=== PATIENT | female | born 1955 | race Asian ===

== ENCOUNTER 2025-02-25 18:22 | Emergency (ER) | payer SELFPAY ==
--- NOTE | ~2025-02-25 | CT_ITS ---
EXAMINATION: CTA chest PE protocol DATE: 02/25/2025 20:01 CDT INDICATION: Shortness of breath with recent immobility TECHNIQUE: Computed tomographic angiography (CTA) of the chest was performed with 100 mL Omnipaque-35 0 intravenous contrast. The dose-length product was 427.05 mGy-cm. Maximum intensity projection 3D-re constructions of the aorta and other arteries were constructed by the technologist on a separate work station. COMPARISON: None. FINDINGS/OBSERVATIONS: PULMONARY ARTERIES: No filling defect is identified within the main or proximal pulmonary artery. The main pulmonary artery is not enlarged. THORACIC AORTA: No aneurysmal dilatation or dissection is present. The great vessels are intact LUNGS: Trace bibasilar atelectasis. The remainder of the lungs are clear. MEDIASTINUM: No morphologically suspicious or pathologically enlarged lymph nodes are identified with in the mediastinum or bilateral axilla. BONES OF THE CHEST: Sternal wires and mediastinal clips are identified, the wires are midline and intact. Evidence of prior vertebral augmentation with anterior extravasation of cement (at the level of T4). Vertebral augmentation at the level of L1 is also noted. No significant degenerative disease. No lytic or blastic lesions. No acute compression fractures. HEART: The heart is of normal size, without pericardial effusion. Within the upper abdomen: Multiple foci of fluid attenuation are identified within the liver, statist ically representing cysts. 2 and 3 mm calculi within the upper pole of the right kidney. The contour of the bilateral kidneys ar e nodular. The bilateral kidneys demonstrate significant cortical atrophy. IMPRESSION: No pulmonary embolus. No thoracic aortic dissection. Trace bibasilar atelectasis. Reviewed, dictated and finalized at location A.
--- NOTE | ~2025-02-25 | XR_ITS ---
CHEST RADIOGRAPH, PA AND LATERAL CLINICAL HISTORY: SOB . COMPARISON: None available TECHNIQUE: PA and lateral views of the chest. FINDINGS Sternal wires and mediastinal clips are identified, the wires are midline and intact. The heart is enlarged. Interstitial thickening is detected, likely chronic. The lungs are otherwise clear. Vertebral augmentation at the levels of T4 and L1. Remaining visualized osseous structures and soft tissues are otherwise unremarkable. IMPRESSION: No focal infiltrate or effusion. Reviewed, dictated and finalized at location A.
--- NOTE | 2025-02-25 18:32 | ECG_ITS ---
Test Date: 2025-02-25 18:35:29 Measurements Intervals [place] Rate: 50 P: 29 CT: 162 QRS: 54 QRSD: 83 T: 54 QT: 468 QTc: 429 Interpretive Statements SINUS BRADYCARDIA MINIMAL Q WAVES- INFERIOR LEADS ST ELEVATION IN ANTEROLAT/INF RIAN- PROBABLY EARLY REPOLARIZATION BASELINE ARTIFACT- I, II, III, AVR, AVL, AVF, V1 BORDERLINE ECG No previous ECG available for comparison Electronically Signed On 02-26-2025 06:02:59 CDT by Bogdan Stringer D.O.
[2025-02-25 18:34] VITALS: BP 85/47; PULSE 42; RESP 24; O2SAT 100
[2025-02-25 18:59] LABS: Basophils Percent Auto 0.3 % (0.2-1.2); Eosinophils Percent Auto 0.3 % (0-4.4); Hematocrit 43.6 % (37.0-47.0); Hemoglobin 14.6 g/dL (12.0-15.0); Immature Granulocyte Absolute 0.05 K/mm3 (0.00-0.031); Immature Granulocyte Percent A 0.6 % (0-0.5); Lymphocytes Absolute Auto 0.84 K/mm3 (0.9-3.2); Lymphocytes Percent Auto 10.7 % (18.3-44.2); Mean Corpuscular HGB Conc 33.5 g/dl (32-36); Mean Corpuscular Hemoglobin 31.8 pg (26-34); Mean Platelet Volume 10.2 fl (7.4-10.4); Monocytes Absolute Auto 0.5 K/mm3 (0.1-0.6); Monocytes Percent Auto 6.9 % (2.6-8.5); Neutrophils Absolute Auto 6.4 K/mm3 (1.3-6.7); Neutrophils Percent Auto 81.2 % (45.5-73.1); Platelet Count Result 180 k/mm3 (150-375); Red Blood Count 4.59 M/mm3 (4.2-5.4); Red Cell Distribution Width 13.2 % (11.5-14.5); White Blood Count 7.8 K/mm3 (4.5-10.0)
[2025-02-25 19:08] LABS: Alanine Aminotransferase 14 U/L (6-35); Alkaline Phosphatase 94 U/L (38-126); Anion Gap 10 mmol/L (4-12); Aspartate Amino Transferase 21 U/L (14-36); Blood Urea Nitrogen 25 mg/dL (7-17); Calcium 8.2 mg/dL (8.4-10.2); Carbon Dioxide 24 mmol/L (22-30); Chloride 101 mmol/L (98-107); Estimated Glomerular Filt Rate 49; Glucose 279 mg/dL (65-110); Lipase 163 U/L (23-300); Potassium 4.1 mmol/L (3.4-5.0); Sodium 135 mmol/L (137-145)
[2025-02-25 19:14] LABS: Prothrombin Time 13.4 Seconds (11.1-14.7)
[2025-02-25 19:15] LABS: Partial Thromboplastin Time 31.9 Seconds (22.3-36.8)
[2025-02-25 19:20] LABS: Troponin I < 0.012 ng/mL (0.000-0.034)
--- NOTE | 2025-02-25 19:24 | ED.SOB ---
HPI - SOB/Dyspnea General Chief Complaint: Shortness of Breath/Dyspnea Stated Complaint: dyspnea, low BP Time Seen by Provider: 02/25/25 19:01 History of Present Illness HPI Narrative: 69-year-old female primarily Lebanese speaking presenting to the emergency department accompanied by her 2 family members. She is [place] the [place] and started developing dyspnea today approximately 3:00 p.m.. She states that she was having trouble getting air in but denies any pleuritic chest pain. She describes chest pressure sensation. She has remote history of congenital heart disease with surgery in [place] many years ago, currently being treated for COPD, dementia, diabetes, gout. Patient is a poor historian at baseline and language barrier exist requiring translation services. Patient denies any chest pain, nausea, vomiting, abdominal pain, back pain. Family notes that she had deranged blood pressures throughout the day as well with elevations in the 180 systolic range and in triage here 85. Currently she is 122/74 without any interventions. Has a heart rate in the 40s to 50s, unclear if this is new or baseline. Related Data Home Medications ?Medication ?Instructions ?Recorded ?Confirmed ?Last Taken ?Type baclofen 10 mg tablet 10 mg PO TID 02/25/25 02/25/25 02/25/25 History citicoline sodium PO brain cell metabolism 02/25/25 02/25/25 History clopidogrel .ROUTE 02/25/25 02/25/25 History dapagliflozin propaned 10 1 tablet PO DAILY 02/25/25 02/25/25 02/25/25 History mg-metformin ER 500 mg tablet, ext rel 24hr entacapone 200 mg tablet 200 mg PO TID 02/25/25 02/25/25 02/25/25 History febuxostat 40 mg tablet (Uloric) 40 mg PO DAILY 02/25/25 02/25/25 02/25/25 History insulin asp prt-insulin aspart 02/25/25 02/25/25 History levodopa 250 mg tablet mg PO TID parkinson 02/25/25 02/25/25 History levothyroxine .ROUTE 02/25/25 02/25/25 History losartan 50 mg tablet (Cozaar) 25 mg PO DAILY 02/25/25 02/25/25 02/25/25 History ropinirole 0.5 mg tablet 0.5 mg PO TID parkinson 02/25/25 02/25/25 02/25/25 History selegiline HCl 5 mg tablet 5 mg PO BID parkinsons 02/25/25 02/25/25 02/25/25 History Allergies Allergy/AdvReac Type Severity Reaction Status Date / Time cephalexin Allergy Other Verified 02/25/25 19:54 ciprofloxacin Allergy Anaphylaxis Verified 02/25/25 19:54 Penicillins Allergy Other Verified 02/25/25 19:54 procaine Allergy Other Verified 02/25/25 19:54 streptomycin Allergy Anaphylaxis Verified 02/25/25 19:54 Sulfa (Sulfonamide Allergy Other Verified 02/25/25 19:54 Antibiotics) Review of Systems Review of Systems: As reviewed above in HPI Exam Narrative: GENERAL: [Well-appearing, well-nourished, and in no acute distress.] HEAD: [Normocephalic, atraumatic.] EYES: [PERRLA and EOMI.] ENT: Nares clear, no rhinorrhea or epistaxis. Mucous membranes moist. NECK: Supple. CHEST: Dyspneic, tachypneic, clear to auscultation, no decreased air entry or wheezing. HEART: [Regular rate and rhythm]. No murmur heard. [Normal peripheral pulses.] ABDOMEN: [Soft, nondistended], [nontender], [No rigidity or guarding] EXTREMITIES: Normal range of motion. [No edema.] SKIN: Old sternotomy scar present, no rash NEURO: [No focal deficits]. Alert and oriented [x3.] PSYCH: [Normal mood and affect.] Course Vital Signs Vital signs: Vital Signs Pulse Rate 42 L 02/25/25 18:34 Respiratory Rate 24 H 02/25/25 18:34 Blood Pressure 85/47 L 02/25/25 18:34 Pulse Oximetry 100 02/25/25 18:34 Pulse Rate 69 02/25/25 23:14 Respiratory Rate 15 02/25/25 23:14 Blood Pressure 148/72 H 02/25/25 23:14 Pulse Oximetry 100 02/25/25 23:14 MDM - SOB/Dyspnea MDM Narrative Medical decision making narrative: 69-year-old female, Lebanese speaking requiring doctor naturopathic. Patient has a history of COPD, diabetes, dementia, congenital heart defect that was repaired many years ago in [place]. Patient is accompanied by her family members were providing additional information time without her blood pressure and heart rate have been deranged throughout the day. Unclear if she has baseline bradycardia but they noted that her heart rate was jumping between hypotensive and hypertensive. Current set of vitals 121/92, heart rate 51, 100% on room air, tachypnea at 24. Afebrile. Triage vitals showed some hypotension and more bradycardia but this resolved upon arrival to the room without intervention. Bedside echocardiogram was conducted by myself and I appreciate a good ejection fraction, sinus bradycardic rate, no pericardial effusions, collapsible IVC with respiratory variation. No right ventricular strain evident. Atrial enlargement seen. She has clear breath sounds throughout, is tachypneic but not wheezing. Differential diagnosis includes thromboembolic event such as pulmonary embolism from the long travel as she has not had any recent surgeries or provoking factors. ACS, symptomatic bradycardia, pulmonary edema, diastolic dysfunction, mild COPD exacerbation, dehydration. Broad workup was ordered including CBC, CMP, troponin, EKG, chest x-ray. CT angiography of the chest was ordered. Her medications were reconciled in the chart. Patient has been placed on clinical consultant and for the last 4 hours while in the emergency department has remained hemodynamically stable with a heart rate in the 60s and a blood pressure in the 160 systolic range without any symptoms. This is reassuring and her workup was largely unremarkable without any concerning findings aside from some mild dehydration for which she was given fluids. Her workup shows no leukocytosis or anemia. Normal platelet count. Negative troponin x2. Mildly elevated creatinine, mildly elevated glucose without ketosis or acidosis. Normal electrolytes. Normal LFTs. Normal TSH. Negative lipase. Urinalysis with a high specific gravity and glucose without any ketones or any infection. Consistent with dehydration. Chest x-ray shows no findings. CT angiography shows no pulmonary embolism or dissection. Trace bibasilar atelectasis. Patient's EKG shows sinus bradycardia with no signs of ST segment changes, ectopy or concerning features such as QTC interval prolongation. I discussed with the patient and the family members at bedside the plan going forward. Given she is hemodynamically stable, given fluid rehydration and has no findings on her workup to point towards a specific etiology I did recommend making some medication changes to her home regimen and gave her primary care provider she can follow-up with. The family states that she will be in [facility] the [facility] 2 months before going back home to [place]. We will adjust her medications including taking half dose of torsemide instead of 10 mg now taking 5 mg p.r.n. as needed for significant leg swelling. We also adjusted and discontinued her metoprolol as she was bradycardic. She is still taking losartan for blood pressure control and her other medications will remain the same. Patient was made aware of these changes and was comfortable with them. She is safe for discharge home at this time and was given primary care provider referral information. Family was given strict return precautions which they verbalized understanding and were comfortable taking the patient home at this time. Medical Records Attestation: I reviewed the patient's medical records. Lab Data Attestation: I reviewed the patient's lab results. 02/25/25 18:51 02/25/25 18:51 Labs: Lab Results 02/25/25 02/25/25 02/25/25 Range/Units 18:51 20:16 21:45 WBC 7.8 (4.5-10.0) K/mm3 RBC 4.59 (4.2-5.4) M/mm3 Hgb 14.6 (12.0-15.0) g/dL Hct 43.6 (37.0-47.0) % MCV 95.0 (80-100) fl MCH 31.8 (26-34) pg MCHC 33.5 (32-36) g/dl RDW 13.2 (11.5-14.5) % Plt Count 180 (150-375) k/mm3 MPV 10.2 (7.4-10.4) fl Immature Gran % (Auto) 0.6 H (0-0.5) % Neut % (Auto) 81.2 H (45.5-73.1) % Lymph % (Auto) 10.7 L (18.3-44.2) % Woodson % (Auto) 6.9 (2.6-8.5) % Eos % (Auto) 0.3 (0-4.4) % Baso % (Auto) 0.3 (0.2-1.2) % Lymph # (Auto) 0.84 L (0.9-3.2) K/mm3 Woodson # (Auto) 0.5 (0.1-0.6) K/mm3 Eos # (Auto) 0.0 (0-0.3) K/mm3 Baso # (Auto) 0.0 (0.0-0.1) K/mm3 Abs Immat Gran (auto) 0.05 H (0.00-0.031) K/mm3 Absolute Neuts (auto) 6.4 (1.3-6.7) K/mm3 Absolute Nucleated RBC 0.000 (0.0-0.012) K/mm3 Nucleated RBC % 0.0 (0.0-0.2) % PT 13.4 (11.1-14.7) Seconds INR 1.0 APTT 31.9 (22.3-36.8) Seconds Sodium 135 L (137-145) mmol/L Potassium 4.1 (3.4-5.0) mmol/L Chloride 101 (98-107) mmol/L Carbon Dioxide 24 (22-30) mmol/L Anion Gap 10 (4-12) mmol/L BUN 25 H (7-17) mg/dL Creatinine 1.11 H (0.7-1.0) mg/dL Estim Creat Clear Calc Not Reportable Estimated GFR 49 L (59 - ) Glucose 279 H (65-110) mg/dL Calcium 8.2 L (8.4-10.2) mg/dL Total Bilirubin 1.0 (0.2-1.3) mg/dL AST 21 (14-36) U/L ALT 14 (6-35) U/L Alkaline Phosphatase 94 (38-126) U/L Troponin I < 0.012 < 0.012 (0.000-0.034) ng/mL Total Protein 7.0 (6.3-8.2) g/dL Albumin 4.0 (3.5-5.1) g/dL Lipase 163 (23-300) U/L TSH (Reflex) 0.652 (0.465-4.68) uIU/mL Urine Color Dark yellow (Yellow) Urine Appearance Clear (Clear) Urine pH 5.5 (5.0-9.0) Ur Specific Bertha > 1.045 H (1.001-1.035) Urine Protein Negative (Negative) mg/dL Urine Glucose (UA) 3+ H (Negative) mg/dL Urine Ketones Negative (Negative) mg/dL Ur Blood (Man) Negative (Negative) Urine Nitrate Negative (Negative) Urine Bilirubin Negative (Negative) Urine Urobilinogen 0.2 (<2.0) mg/dL Leukocyte Esterase Rfl Negative (Negative) EPHRAIM/UL Imaging Data Attestation: I personally reviewed and interpreted this imaging study as follows: My impression: Impressions Chest CTA 02/25/25 20:00 IMPRESSION: No pulmonary embolus. No thoracic aortic dissection. Trace bibasilar atelectasis. Chest X-Ray 02/25/25 20:14 IMPRESSION: No focal infiltrate or effusion. Discharge Plan Discharge Clinical Impression: Acute dyspnea, Acute dehydration, Hypovolemia associated with diuresis, Bradycardia Patient Disposition: Home, Self-Care Condition: Stable Instructions: Antibiotic Form Additional Instructions: The patient was dehydrated here likely secondary to over-diuresis from torsemide. Your blood pressure and pulse were likely also low from a combination of over-diuresis and medications. Your workup here was very reassuring, no focal findings, no signs of infection, no signs of heart damage, no blood clots or any other concerning findings today besides dehydration. Recommendations are to cut your torsemide dose in half and take 5 mg when needed needed for significant leg swelling. Make sure to have good oral hydration. The other medication to changes your metoprolol succinate. Stop taking Metoprolol as your heart rate was low. Make these 2 changes and follow-up with the primary care provider we have provided. Return to the ER with any new or worsening concerns at any time. Patient Language: Mongolian Prescriptions: Discontinued metoprolol succinate PO No Action levodopa 250 mg tablet PO TID ropinirole 0.5 mg tablet 0.5 mg PO TID entacapone 200 mg tablet 200 mg PO TID Rx Instructions: administer at the same time as l-dopa/carbidopa dose selegiline HCl 5 mg tablet 5 mg PO BID Rx Instructions: administer with breakfast and lunch baclofen 10 mg tablet 10 mg PO TID citicoline sodium PO dapaglifloz propaned-metformin 10-500 mg tablet, IR - ER, biphasic 24hr 1 tablet PO DAILY insulin asp prt-insulin aspart levothyroxine .ROUTE losartan [Cozaar] 50 mg tablet 25 mg PO DAILY febuxostat [Uloric] 40 mg tablet 40 mg PO DAILY clopidogrel .ROUTE Follow-up/Referrals: Paz Guerra DO [Physician] - 3 Days (Follow-up ER, established PCP) PHYSICIAN NOT ON STAFF,NONSTAFF [Primary Care Provider] - Time of Disposition: 23:00
[2025-02-25 19:29] VITALS: BP 124/87
[2025-02-25] MEDS: LACTATED RINGERS 1,000 ML 999 ML IV CONT (20:15)
[2025-02-25 20:26] VITALS: BP 156/89; PULSE 76
[2025-02-25 20:32] LABS: Add Urine Microscopic? YES; Appearance Urine Clear (Clear); Bilirubin Urine Negative (Negative); Blood Urine Negative (Negative); Color Urine Dark Yellow (Yellow); Glucose Urine UA 3+ mg/dL (Negative); Ketones Urine Negative (Negative); Leukocyte Esterase Ur Negative LEU/UL (Negative); Nitrate Urine Negative (Negative); Protein Urine Negative (Negative); Specific Grav Ur > 1.045 (1.001-1.035); Urobilinogen Urine 0.2 mg/dL (<2.0); pH Urine 5.5 (5.0-9.0)
[2025-02-25 20:37] LABS: Thyroid Stimulating Hormone Reflex 0.652 uIU/mL (0.465-4.68)
[2025-02-25 21:42] VITALS: BP 164/82; PULSE 61; RESP 15; O2SAT 100
[2025-02-25 22:13] LABS: Troponin I < 0.012 ng/mL (0.000-0.034)
--- NOTE | 2025-02-25 22:32 | ECG_ITS ---
Test Date: 2025-02-25 22:35:13 Measurements Intervals [place] Rate: 58 P: 51 FL: 150 QRS: 64 QRSD: 78 T: 52 QT: 434 QTc: 429 Interpretive Statements SINUS BRADYCARDIA EARLY REPOLARIZATION BASELINE ARTIFACT- I, II, III, AVR, AVL, AVF, V4 BORDERLINE ECG Compared to ECG 02/25/2025 18:35:29 NO SIGNIFICANT CHANGE Electronically Signed On 02-26-2025 06:14:32 CDT by Bogdan Stringer D.O.
[2025-02-25 23:14] VITALS: BP 148/72; PULSE 69; RESP 15; O2SAT 100
== END 2025-02-25 23:15 | disposition home or self-care (01) ==
PROVIDERS: Emergency Medicine; Emergency Provider Student in an Organized Health Care Education/Training Program
DX: R06.00 Dyspnea, unspecified (principal); E86.0 Dehydration; E86.1 Hypovolemia; R35.89 Other polyuria; R00.1 Bradycardia, unspecified; F03.90 Unspecified dementia, unspecified severity, without behavioral disturbance, psychotic disturbance, mood disturbance, and anxiety; J44.9 Chronic obstructive pulmonary disease, unspecified; E11.9 Type 2 diabetes mellitus without complications; M10.9 Gout, unspecified; Z87.74 Personal history of (corrected) congenital malformations of heart and circulatory system; Z79.4 Long term (current) use of insulin; Z79.899 Other long term (current) drug therapy; Z79.02 Long term (current) use of antithrombotics/antiplatelets
CPT/HCPCS: 36415; 71046; 71275; 80053; 81001; 83690; 84443; 84484; 85025; 85610; 85730; 93005; 96360; 99284; J7120; Q9967